=== PATIENT | male | born 1950 | race Caucasian/White ===

== ENCOUNTER 2016-12-25 08:45 | Inpatient (IN) | payer OTHER ==
[~2016-12-25] VITALS: Ht 177.8 cm; Wt 85.3 kg
--- NOTE | 2016-12-25 08:45 | NUR ---
Dr Jacob medically cleared pt.
--- NOTE | 2016-12-25 08:50 | NUR ---
Per Dr Jacob pt is medically clear and may be trans to [facility]. SBAR report given to Meka FUNES.
--- NOTE | 2016-12-25 08:55 | NUR ---
Pt trans to [facility], NAD noted.
[2016-12-25] MEDS ORDERED: NORCO PO (09:06)
[2016-12-25] MEDS ORDERED: METO-304 PO (09:06)
[2016-12-25] MEDS ORDERED: ELIQUIS PO (09:06)
[2016-12-25 09:09] VITALS: BP 154/97
[2016-12-25] MEDS ORDERED: MAGNESIUM HYDROXIDE 30 ML LIQUID UDC PO PRN (11:00)
[2016-12-25] MEDS ORDERED: MAG HYDROX/AL HYDROX/SIMETH 30 ML LIQUID UDC PO PRN (11:00)
[2016-12-25] MEDS ORDERED: LORAZEPAM 0.5 MG TABLET PO PRN (11:00)
[2016-12-25] MEDS ORDERED: METO50TA3 PO (11:15)
[2016-12-25] MEDS ORDERED: ATOR40TA PO (11:15)
[2016-12-25] MEDS ORDERED: DULO60CA45 PO (11:16)
[2016-12-25] MEDS ORDERED: PRIM50TA PO (11:18)
[2016-12-25] MEDS ORDERED: TAMS0.4C34 PO (11:18)
[2016-12-25] MEDS ORDERED: RIVA15TA PO (11:18)
[2016-12-25] MEDS ORDERED: BACL20TA PO (11:19)
[2016-12-25] MEDS ORDERED: TRAZ-147 PO (11:19)
[2016-12-25] MEDS ORDERED: HYDR-548 PO (11:20)
[2016-12-25] MEDS ORDERED: METH10TA2 PO (11:20)
[2016-12-25] MEDS ORDERED: LORAZEPAM 1 MG TABLET PO PRN (12:15)
[2016-12-25] MEDS ORDERED: CYANOCOBALAMIN 100 MCG TABLET PO SCH (12:15)
[2016-12-25] MEDS: METHADONE HCL 10 MG TABLET PO SCH ×2 (13:00→17:10)
[2016-12-25] MEDS: MULTIVITAMINS,THERAPEUTIC TABLET PO SCH (13:23)
[2016-12-25] MEDS: THIAMINE HCL 100 MG TABLET PO SCH (13:23)
[2016-12-25] MEDS: FOLIC ACID 1 MG TABLET PO SCH (13:23)
[2016-12-25] MEDS: HYDROCODONE/APAP 10-325 MG TABLET PO PRN ×2 (13:27→21:49)
--- NOTE | 2016-12-25 14:21 | NUR ---
GPS/RN- ADMISSION NOTE Patient admitted on 5149 for Grave Disability, per 5150 Tong was found walking barefoot on the hot asphalt wandering around, He didn't know where he was at or why he was there, He was walking around with beckman in his hands.Tong said he a was put on 72 hour hold in the past. Tong is unable to safely care for himself during this weather. Upon face to face assessment patient is alert and oriented to person place and time, patient able to recall incident of hold once redirected, patient stated that he had left Friday morning from his home on 12/23/[address] to drive to a cabin they own, instead he said he ended up at a parking lot. patient acknowledges drinking alcohol, drinks approximate 2 pints of whiskey everyday, verbalized he drank less on Friday12/24/16 but is able to recall less, stated he "blacked out". patient denies any hallucinations at this time denies any suicidal or homicidal ideation. 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 patient was eventually detoxed and placed on methadone, however patient is on [place] now and Methadone, however patient chooses to drink instead of taking meds. verbalized he rather drink that numbs the pain than take so many pills. patient verbalized being in detox unit in the past 60 days, and in mental health unit before at least 5 times, but his length of stay does not exceed the 72 hours hold. patient is calm and cooperative, disorganized at times with thoughts but redirectable. continue to monitor able to contract for safety. 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
[2016-12-25 16:00] VITALS: BP 131/95
[2016-12-25] MEDS: METOPROLOL SUCCINATE XL 50 MG TAB.SR.24H PO SCH (17:00)
[2016-12-25] MEDS: BACLOFEN 20 MG TABLET PO SCH (17:10)
[2016-12-25] MEDS: PRIMIDONE 50 MG TABLET PO SCH (17:16)
[2016-12-25 20:55] VITALS: BP 145/94
[2016-12-25] MEDS ORDERED: RIVAROXABAN 15 MG TABLET PO ONE (21:00)
[2016-12-25] MEDS: ATORVASTATIN 40 MG TABLET PO SCH (21:16)
[2016-12-25] MEDS: LORAZEPAM 1 MG TABLET PO PRN (21:17)
--- NOTE | 2016-12-25 22:00 | NUR ---
received to care, watching tv, pleasant upon approach. no interactions with peers, noted. denies si, or desire to harm self. behavior is appropriate, for situation. PRN ativan was given at 2116, for anxiety, and fine hand tremors. he was also given PRN norco, at 2148, for lower back pain 8/10, on pain scale. as of 2199, he states less anxious. results of norco is pending. will continue to monitor closely.
--- NOTE | 2016-12-25 23:00 | NUR ---
appears to be asleep. no distress noted.
[2016-12-25] MEDS: TEMAZEPAM 7.5 MG CAPSULE PO PRN (23:49)
[2016-12-26] MEDS: ACETAMINOPHEN 325 MG TABLET PO PRN ×2 (02:19→15:55)
[2016-12-26] MEDS: HYDROCODONE/APAP 10-325 MG TABLET PO PRN ×3 (03:52→20:12)
--- NOTE | 2016-12-26 04:52 | NUR ---
PRN tylenol was given at 218, for lower back pain 01/30, with minimal to no relief. PRN norco was given at 351, and, as of 451, he states good relief, 09/30
--- NOTE | 2016-12-26 06:00 | NUR ---
slept 5.5 hours. is now awake. watching tv. no distress noted. will continue to monitor closely.
[2016-12-26 07:30] VITALS: BP 116/86
[2016-12-26 07:30] LABS: HEMATOCRIT 34.1 % (40-50); HEMOGLOBIN 11.4 G/DL (14.0-18.0); MEAN CORPUSCULAR HEMOGLOBIN 30.7 UUG (27.0-31.0); MEAN CORPUSCULAR HGB CONC 34 g/dL (32.0-37.0); MEAN CORPUSCULAR VOLUME 91.6 FL (82.0-92.0); PLATELET COUNT (AUTO) 135 K/UL (150-450); RED BLOOD CELL COUNT(AUTO) 3.73 MIL/UL (4.7-6.1); WHITE BLOOD COUNT (AUTO) 2.7 K/UL (4.0-11.2)
[2016-12-26 07:46] LABS: BILIRUBIN,TOTAL 0.6 mg/dL (0.2-1.0); CREATININE 0.9 mg/dL (0.6-1.3); MAGNESIUM 1.5 mg/dL (1.8-2.4); PHOSPHOROUS 3.6 mg/dL (2.5-4.9); POTASSIUM 3.7 mmol/L (3.5-5.1); TOTAL PROTEIN, SERUM 7.7 g/dL (6.4-8.2)
[2016-12-26 07:57] LABS: THYROID STIMULATING HORMONE 2.269 mIU/mL (0.358-3.740)
[2016-12-26] MEDS: PRIMIDONE 50 MG TABLET PO SCH ×2 (08:08→17:25)
[2016-12-26] MEDS: FOLIC ACID 1 MG TABLET PO SCH (08:08)
[2016-12-26] MEDS: THIAMINE HCL 100 MG TABLET PO SCH (08:08)
[2016-12-26] MEDS: MULTIVITAMINS,THERAPEUTIC TABLET PO SCH (08:08)
[2016-12-26] MEDS: TAMSULOSIN HCL 0.4 MG CAP.SR.24H PO SCH (08:08)
[2016-12-26] MEDS: BACLOFEN 20 MG TABLET PO SCH ×2 (08:08→17:25)
[2016-12-26] MEDS: METOPROLOL SUCCINATE XL 50 MG TAB.SR.24H PO SCH ×2 (08:09→17:00)
[2016-12-26] MEDS: METHADONE HCL 10 MG TABLET PO SCH ×3 (08:17→17:25)
--- NOTE | 2016-12-26 09:00 | NUR ---
GPS/RN- PATIENT STATED ONLY TAKES B/P MED IF PRESSURE IS SBP IS 130 OR HIGHER, SINCE OTHER MEDS DROP HIS BLOOD PRESSURE THROUGHOUT DAY.
[2016-12-26 09:44] LABS: BAND % (MANUAL) 3 % (0-10); EOSINOPHILS % (MANUAL) 2 % (0-8); LYMPHOCYTES % (MANUAL) 20 % (20-40); MONOCYTES % (MANUAL) 13 % (2-10); NEUTROPHILS % (MANUAL) 62 % (42-75)
[2016-12-26] MEDS ORDERED: RIVAROXABAN 15 MG TABLET PO ONE (10:15)
[2016-12-26] MEDS ORDERED: MAGNESIUM OXIDE 400 MG TABLET PO ONE (10:45)
--- NOTE | 2016-12-26 14:48 | NUR ---
DC Note 12/27/16: Patient will be discharged on 12-27-16 back home [[address] [place], [address]; [phone]] via private transportation at 11:00 am. Patient will be picked up by his , Munira. Spoke with Munira who is aware and agreeable with discharge plans. Patient is aware and agreeable with discharge plans. Patient will follow-up with ([facility]) [[address] [place] [address]; ]. Patient will follow-up with (Psychiatrist) [[id number] [facility] [address], [place] [address]; ] on January 07 at 11:45 am. Patient was provided with a brief substance abuse intervention and referred to [facility] [phone], [facility] [phone], and [facility] [phone]. Addendum: 12/27/16 at 0808 by CELINA VAZQUEZ Patient will follow-up with Dr.George Zuniga (Psychologist) on December 30 at 2:30 pm [[address], [place] [address]; [phone].
[2016-12-26] MEDS: LORAZEPAM 1 MG TABLET PO PRN ×2 (15:51→21:29)
[2016-12-26 16:10] VITALS: BP 124/89
--- NOTE | 2016-12-26 17:00 | NUR ---
GPS/RN- PATIENT STATED ONLY TAKES B/P MED IF PRESSURE IS SBP IS 130 OR HIGHER, SINCE OTHER MEDS DROP HIS BLOOD PRESSURE THROUGHOUT DAY.
[2016-12-26 19:30] VITALS: BP 126/88
[2016-12-26] MEDS: ATORVASTATIN 40 MG TABLET PO SCH (20:07)
[2016-12-26] MEDS: RIVAROXABAN 15 MG TABLET PO SCH (20:08)
[2016-12-26] MEDS ORDERED: DULOXETINE 30 MG CAPSULE.DR PO SCH (21:00)
--- NOTE | 2016-12-26 22:00 | NUR ---
received to care, watching tv, pleasant upon approach. no interactions with peers, noted. denies si, or desire to harm self. behavior is appropriate, for situation. PRN ativan was given at 2128, for anxiety, and fine hand tremors. he was also given PRN norco, at 2011, for lower back pain 8/10, on pain scale. as of 2199, he states less anxious. pain is 4/10, at this time. no distress noted. will continue to monitor closely.
[2016-12-27] MEDS: TEMAZEPAM 7.5 MG CAPSULE PO PRN (00:20)
[2016-12-27] MEDS: HYDROCODONE/APAP 10-325 MG TABLET PO PRN (05:53)
--- NOTE | 2016-12-27 05:53 | NUR ---
slept 3 hours, total. PRN norco was given for lower back pain 01/30. will continue to monitor closely.
[2016-12-27 07:30] VITALS: BP 114/78
[2016-12-27 07:41] LABS: BASOPHILS % (AUTO) 0.2 % (0.0-2.0); EOSINOPHILS # (AUTO) 0.1 K/uL (0.0-0.7); EOSINOPHILS % (AUTO) 2.5 % (0.0-7.0); HEMATOCRIT 31.2 % (40-50); HEMOGLOBIN 10.4 G/DL (14.0-18.0); LYMPHOCYTES # (AUTO) 0.3 K/UL (0.8-4.8); MEAN CORPUSCULAR HEMOGLOBIN 30.7 UUG (27.0-31.0); MEAN CORPUSCULAR HGB CONC 34 g/dL (32.0-37.0); MEAN CORPUSCULAR VOLUME 91.8 FL (82.0-92.0); MONOCYTES # (AUTO) 0.6 K/UL (0.1-1.30); MONOCYTES % (AUTO) 16.8 % (0.0-11.0); NEUTROPHILS # (AUTO) 2.4 K/UL (1.8-8.9); NEUTROPHILS % (AUTO) 70.5 % (38.5-71.5); PLATELET COUNT (AUTO) 143 K/UL (150-450); WHITE BLOOD COUNT (AUTO) 3.4 K/UL (4.0-11.2)
[2016-12-27 08:28] LABS: BILIRUBIN,TOTAL 0.6 mg/dL (0.2-1.0); CREATININE 0.8 mg/dL (0.6-1.3); MAGNESIUM 1.5 mg/dL (1.8-2.4); POTASSIUM 4.1 mmol/L (3.5-5.1); TOTAL PROTEIN, SERUM 7.8 g/dL (6.4-8.2)
[2016-12-27 09:25] LABS: BAND % (MANUAL) 1 % (0-10); EOSINOPHILS % (MANUAL) 3 % (0-8); LYMPHOCYTES % (MANUAL) 9 % (20-40); MONOCYTES % (MANUAL) 18 % (2-10); NEUTROPHILS % (MANUAL) 69 % (42-75)
[2016-12-27] MEDS: MULTIVITAMINS,THERAPEUTIC TABLET PO SCH (09:50)
[2016-12-27] MEDS: FOLIC ACID 1 MG TABLET PO SCH (09:50)
[2016-12-27 09:51] VITALS: BP 114/78
[2016-12-27] MEDS: METOPROLOL SUCCINATE XL 50 MG TAB.SR.24H PO SCH (09:51)
[2016-12-27] MEDS: THIAMINE HCL 100 MG TABLET PO SCH (09:53)
[2016-12-27] MEDS: TAMSULOSIN HCL 0.4 MG CAP.SR.24H PO SCH (09:53)
[2016-12-27] MEDS: METHADONE HCL 10 MG TABLET PO SCH ×2 (09:53→13:00)
[2016-12-27] MEDS: BACLOFEN 20 MG TABLET PO SCH (09:57)
[2016-12-27] MEDS: PRIMIDONE 50 MG TABLET PO SCH (09:57)
[2016-12-27] MEDS: RIVAROXABAN 15 MG TABLET PO SCH (10:06)
--- NOTE | 2016-12-27 11:13 | NUR ---
UR Note: TAYLOR faxed discharge clinicals to Brijesh CROCKETT [ / Fx: [phone]]. TRACKING# [id number]
--- NOTE | 2016-12-27 11:20 | NUR ---
GPS/NURSING/DISCHARGE PATIENT IS BEING DISCHARGED BACK HOME. PT'S IS HERE TO PICK HIM UP. DISCHARGE INSTRUCTIONS ARE GIVEN TO BOTH THE PT AND HIS . THEY BOTH UNDERSTAND THE NEED TO FOLLOW UP WITH SUBSTANCE ABUSE AND PAIN MANAGEMENT AND PSYCHIATRY. PRESCRIPTIONS ARE GIVEN, FORM SIGNED.
[2016-12-27] MEDS ORDERED: MAGNESIUM OXIDE 400 MG TABLET PO ONE (14:15)
--- NOTE | 2016-12-27 14:17 | NUR ---
patient discharged [id number] with all belongings in no acute distress with at his side
== END 2016-12-27 11:30 | disposition home or self-care (01) | DRG 881 ==
LOC: ER 08:45 → GPS 09:00
PROVIDERS: ADMIT Psychiatry & Neurology Psychiatry; ATTEND Internal Medicine
DX: F32.9 Major depressive disorder, single episode, unspecified (principal); F10.259 Alcohol dependence with alcohol-induced psychotic disorder, unspecified; D61.818 Other pancytopenia; Z86.718 Personal history of other venous thrombosis and embolism; Z79.01 Long term (current) use of anticoagulants; I25.2 Old myocardial infarction; Z95.1 Presence of aortocoronary bypass graft; Z96.642 Presence of left artificial hip joint; G89.29 Other chronic pain; Z85.038 Personal history of other malignant neoplasm of large intestine; N40.0 Benign prostatic hyperplasia without lower urinary tract symptoms; G40.909 Epilepsy, unspecified, not intractable, without status epilepticus; F10.120 Alcohol abuse with intoxication, uncomplicated; Y90.9 Presence of alcohol in blood, level not specified; F12.90 Cannabis use, unspecified, uncomplicated; E83.42 Hypomagnesemia; R74.0 Nonspecific elevation of levels of transaminase and lactic acid dehydrogenase [LDH]; M54.30 Sciatica, unspecified side
CPT/HCPCS: 36415; 83735; 84100; 84443; 85025